=== PATIENT | male | born 1955 | race Caucasian/White ===

== ENCOUNTER 2020-10-10 07:50 | Day surgery (SDC) | payer MEDICARE, SELFPAY ==
[2020-10-04 12:05] VITALS: BMI 34.4
--- NOTE | 2020-10-09 09:41 | HO.ANESPROP2 ---
Documented by User: Vicky Hinojosa 10/09/20 09:41 HPI - Anesthesia Eval Consult details Narrative: 64yo M for Colonoscopy [facility] Past Medical History Medical History COVID-19 vaccine administered Gallstones HTN (hypertension) Surgical History Surgical History Hx of appendectomy Hx of colonoscopy Social History Social History Are you a primary health care facility administrator to a significant other at home: No Do you presently have visiting nurse or other home services: No Patient Tobacco Use Status: Never used Tobacco Use of substances other than those prescribed or required for medical reasons: No Have you been hit, kicked, punched, or otherwise hurt by someone within the past year? If so, by whom?: No Are you DNR?: No Advance Directives: No Advance Directives Information Provided: No Advance Directives on File: No Recently lost weight without trying: No Eating poorly because of decreased appetite: No Nutrition Risks: No Nutritional Risk Poor oral hygiene: No Meds Allergies Allergy/AdvReac Type Severity Reaction Status Date / Time No Known Allergies Allergy Verified 10/04/20 11:33 Home Medications Medication Instructions Recorded Confirmed Last Taken Type diltiazem HCl 1 cap PO DAILY 10/04/20 10/04/20 10/10/20 History hydrochlorothiazide 1 tab PO DAILY 10/04/20 10/04/20 Unknown History losartan 1 tab PO DAILY 10/04/20 10/04/20 Unknown History ursodiol 1 cap PO TID 10/04/20 10/04/20 Unknown History Exam Exam Date and Time: October 09, 2020 0941 Height,Weight and Vital Signs: Height 5 ft 8 in Weight 102.965 kg Assessment and Plan Assessment Anesthesia Assessment: Chart Reviewed Documented by User: Khadijah Treadwell 10/10/20 08:48 [facility] Past Medical History Medical History COVID-19 vaccine administered Gallstones HTN (hypertension) Surgical History Surgical History Hx of appendectomy Hx of colonoscopy Social History Social History Are you a primary health care facility administrator to a significant other at home: No Do you presently have visiting nurse or other home services: No Patient Tobacco Use Status: Never used Tobacco Use of substances other than those prescribed or required for medical reasons: No Have you been hit, kicked, punched, or otherwise hurt by someone within the past year? If so, by whom?: No Are you DNR?: No Advance Directives: No Advance Directives Information Provided: No Advance Directives on File: No Recently lost weight without trying: No Eating poorly because of decreased appetite: No Nutrition Risks: No Nutritional Risk Poor oral hygiene: No Meds Allergies Allergy/AdvReac Type Severity Reaction Status Date / Time No Known Allergies Allergy Verified 10/04/20 11:33 Home Medications Medication Instructions Recorded Confirmed Last Taken Type diltiazem HCl 1 cap PO DAILY 10/04/20 10/04/20 10/10/20 History hydrochlorothiazide 1 tab PO DAILY 10/04/20 10/04/20 Unknown History losartan 1 tab PO DAILY 10/04/20 10/04/20 Unknown History ursodiol 1 cap PO TID 10/04/20 10/04/20 Unknown History Exam Airway Mallampati Class: III TM Dist: >3cm Neck ROM: Full Loose/Missing/Broken Teeth: No Heart: RRR Lungs: CTA Assessment and Plan Assessment Anesthesia Assessment: Anesthesia Plan Discussed and Chart Reviewed Final Anesthetic Review NPO: Yes ASA Class: II Final Preanesthetic Review: Meds/Allgs Chart Reviewed, Consent Obtained/Reviewed and Anes Risks/Benef Reviewed Patient Risk: Low Procedure Risk: Low Anesthetic Plan Anesthetic Plan: MAC: Disposition: Standard PACU
[2020-10-10 08:02] VITALS: BP 164/62; PULSE 70; RESP 18; TEMP 35.9; O2SAT 98
[2020-10-10] MEDS: Lactated Ringers 1,000 ML 100 ML IVCONT (08:10)
--- NOTE | 2020-10-10 08:38 | MHC.SHP ---
Pre-Procedural Eval Section A Date of Service: 10/10/20 Section B Chief Complaint: screening Details of Present Illness: see h&p no changes Relevant Family History (Specify if Yes): Yes Relevant Social History: None Present Medications: see Short Stay Collaborative assessment Medical History: No relevant PMH History of Previous Operations: No relevant previous surgery Allergies: Allergies Allergy/AdvReac Type Severity Reaction Status Date / Time No Known Allergies Allergy Verified 10/04/20 11:33 Review of Systems Sugical H&P ROS: Negative: Constitution, Cardiovascular, Respiratory, Neurological, Psychiatric, Hem-Onc, Allergic/Immunologic, Gastrointestinal, Genitourinary, Musculoskeletal, Integumentary, Endocrine and Eyes/Ears/Nose/Throat Exam Surgical H&P Exam: Normal: HEENT, Normal: Heart, Normal: Lungs, Normal: Extremities, Normal: Abdomen, Normal: Skin and Normal: Neurological Plan Diagnosis/Plan: Unchanged I have reviewed the history and physical and performed a pertinent physical examination on my patient. No changes have occurred unless specified.
[2020-10-10 09:22] VITALS: BP 132/46; PULSE 62; RESP 18; TEMP 36.2; O2SAT 100
--- NOTE | 2020-10-10 09:26 | P.BOP_ITS ---
Brief Operative Note Date of Service: 10/10/20 Pre-op diagnosis: screening Post-op diagnosis: other (colon polyps) Procedure: colonoscopy Surgeon: Osito Ceja Anesthesia: MAC Was an Impregnator Operator used for this Procedure?: No Estimated blood loss (mL): 5 Pathology: other (multiple polyps) Condition: stable Disposition: PACU
[2020-10-10 09:37] VITALS: BP 124/47; PULSE 53; RESP 16; TEMP 36.2; O2SAT 97
--- NOTE | 2020-10-10 09:42 | OP_ITS ---
SURGEON: Osito Ceja MD INDICATIONS: Colon cancer screening and prior history of adenomatous colon polyps. PREOPERATIVE DIAGNOSIS: POSTOPERATIVE DIAGNOSIS: PROCEDURE PERFORMED: Colonoscopy to the terminal ileum with snare polypectomy. ESTIMATED BLOOD LOSS: COMPLICATIONS: ANESTHESIA: ASSISTANTS: SPECIMENS: MEDICATIONS: Monitored anesthesia care. DESCRIPTION OF PROCEDURE: History and physical performed. The risks and benefits of the procedure were explained to the patient. Informed consent was obtained. The patient was placed in the left lateral decubitus position. A digital rectal exam was performed and was found to be normal. The Olympus pediatric video colonoscope was introduced into the rectum and advanced to the cecum without difficulty. The cecum was identified by transillumination, palpation, and identification of ileocecal valve. Examination was performed and the scope was removed. He tolerated the procedure well and was taken to recovery area in stable condition. FINDINGS: The terminal ileum was normal. The visualized colonic mucosa was normal. There were multiple colonic polyps, all of which were removed with a snare. The largest measured approximately 10 to 12 mm. Polyps were located in the cecum x3, at 70 cm x6, at 60 cm x2, at 50 cm x1, and 40 cm x1. There was some stool coating the mucosa. This was washed and suctioned. Retroflexed examination showed some small internal hemorrhoids. IMPRESSION: Multiple colonic polyps. RECOMMENDATION: Follow up the biopsy results. MD RENARD Fleming/FRANK / [id number]
== END 2020-10-10 10:00 | disposition home or self-care (01) ==
PROVIDERS: PCP Internal Medicine; Visit Provider Internal Medicine Gastroenterology
PROC: 0DJD8ZZ Inspection of Lower Intestinal Tract, Via Natural or Artificial Opening Endoscopic (ICD-10-PCS; CPT 45378; principal; 2020-10-10 09:00)
DX: Z12.11 Encounter for screening for malignant neoplasm of colon (principal); Z86.010 Personal history of colon polyps; D12.0 Benign neoplasm of cecum; D12.4 Benign neoplasm of descending colon; D12.5 Benign neoplasm of sigmoid colon; K64.8 Other hemorrhoids; I10 Essential (primary) hypertension; Z79.899 Other long term (current) drug therapy
CPT/HCPCS: 45385; 88305

== ENCOUNTER 2022-01-29 06:16 | Day surgery (SDC) | payer MEDICARE, BC, SELFPAY ==
--- NOTE | 2022-01-28 12:30 | HO.ANESPROP2 ---
HPI - Anesthesia Eval Consult details Narrative: 66yo M for Upper Endoscopy and Colonoscopy [facility] Past Medical History Medical History COVID-19 vaccine administered Gallstones HTN (hypertension) Surgical History Surgical History (Updated 01/29/22 @ 07:17 by Aida Finch RN) History of cholecystectomy Hx of appendectomy Hx of colonoscopy Social History Social History Are you a primary lawn care technician to a significant other at home: No Do you presently have visiting nurse or other home services: No Patient Tobacco Use Status: Never used Tobacco Use of substances other than those prescribed or required for medical reasons: No Are you DNR?: No Advance Directives: No Advance Directives Information Provided: Yes Meds Allergies Allergy/AdvReac Type Severity Reaction Status Date / Time No Known Allergies Allergy Verified 10/04/20 11:33 Home Medications Medication Instructions Recorded Confirmed Last Taken Type diltiazem HCl 360 mg 1 cap PO DAILY 10/04/20 01/29/22 10/10/20 History capsule,extended release 24 hr hydrochlorothiazide 25 mg tablet 1 tab PO DAILY 10/04/20 01/29/22 Unknown History losartan 100 mg tablet 1 tab PO DAILY 10/04/20 01/29/22 Unknown History Exam Exam Date and Time: January 28, 2022 1230 Assessment and Plan Assessment Anesthesia Assessment: Chart Reviewed
[2022-01-29 07:02] VITALS: BMI 30.1
[2022-01-29 07:11] VITALS: BP 171/64; PULSE 64; RESP 16; TEMP 36; O2SAT 99
[2022-01-29] MEDS: Lactated Ringers 1,000 ML 100 ML IVCONT (07:44)
--- NOTE | 2022-01-29 07:45 | MHC.SHP ---
Pre-Procedural Eval Section A Date of Service: 01/29/22 Section B Chief Complaint: cirrhosis,screening Details of Present Illness: see H&P no changes Relevant Family History (Specify if Yes): No Relevant Social History: None Present Medications: see Short Stay Collaborative assessment Medical History: No relevant PMH Allergies: Allergies Allergy/AdvReac Type Severity Reaction Status Date / Time No Known Allergies Allergy Verified 10/04/20 11:33 Review of Systems Sugical H&P ROS: Negative: Constitution, Cardiovascular, Respiratory, Neurological, Psychiatric, Hem-Onc, Allergic/Immunologic, Gastrointestinal, Genitourinary, Musculoskeletal, Integumentary, Endocrine and Eyes/Ears/Nose/Throat Exam Surgical H&P Exam: Normal: HEENT, Normal: Heart, Normal: Lungs, Normal: Extremities, Normal: Abdomen, Normal: Skin and Normal: Neurological Plan Diagnosis/Plan: Unchanged I have reviewed the history and physical and performed a pertinent physical examination on my patient. No changes have occurred unless specified.
--- NOTE | 2022-01-29 08:03 | P.CONAN_ITS ---
HPI - Anesthesia Eval Consult details Narrative: 66yo male patient for EGD, Colonoscopy PMFSH Active Problems Active Problems: Denies FILOMENA Past Medical History Medical History COVID-19 vaccine administered Gallstones HTN (hypertension) Family History Family history of problems with anesthesia: No Surgical History Surgical History (Updated 01/29/22 @ 07:17 by Aida Finch RN) History of cholecystectomy Hx of appendectomy Hx of colonoscopy History of Problems with Anesthesia: No Social History Social History Are you a primary career development engineer to a significant other at home: No Do you presently have visiting nurse or other home services: No Patient Tobacco Use Status: Never used Tobacco Use of substances other than those prescribed or required for medical reasons: No Are you DNR?: No Advance Directives: No Advance Directives Information Provided: Yes Meds Allergies Allergy/AdvReac Type Severity Reaction Status Date / Time No Known Allergies Allergy Verified 10/04/20 11:33 Active Medications: Current Medications Lactated Ringer's (Lr) 1,000 mls @ 100 mls/hr IVCONT .Q10H SIERRA Last Admin: 01/29/22 07:44 Dose: 100 mls/hr Home Medications Medication Instructions Recorded Confirmed Last Taken Type diltiazem HCl 360 mg 1 cap PO DAILY 10/04/20 01/29/22 10/10/20 History capsule,extended release 24 hr hydrochlorothiazide 25 mg tablet 1 tab PO DAILY 10/04/20 01/29/22 Unknown History losartan 100 mg tablet 1 tab PO DAILY 10/04/20 01/29/22 Unknown History Exam Exam Date and Time: January 29, 2022802 Height,Weight and Vital Signs: Height 5 ft 8 in Weight 89.811 kg Last Vital Signs Temp 96.8 F 01/29/22 07:11 Pulse 64 01/29/22 07:11 Resp 16 01/29/22 07:11 BP 171/64 H 01/29/22 07:11 Pulse Ox 99 01/29/22 07:11 O2 Del Method 01/29/22 07:11 Airway Mallampati Class: IV TM Dist: >3cm Neck ROM: Full Loose/Missing/Broken Teeth: No (Denies broken or loose teeth) Heart: RRR Lungs: CTAB Assessment and Plan Assessment Anesthesia Assessment: Anesthesia Plan Discussed and Chart Reviewed Final Anesthetic Review Family History of Problems with Anesthesia: No History of Problems with Anesthesia: No NPO: Yes ASA Class: III Final Preanesthetic Review: No Changes in Pt Med Stat, Meds/Allgs Chart Reviewed, Consent Obtained/Reviewed and Anes Risks/Benef Reviewed Patient Risk: Intermediate Procedure Risk: Low Assessment/Block/Sedation in SS: Assess/Block/Sedation-SS Anesthetic Plan Anesthetic Plan: MAC: Disposition: Standard PACU
[2022-01-29 08:29] VITALS: BP 100/33; PULSE 67; RESP 15; TEMP 36.1; O2SAT 98
--- NOTE | 2022-01-29 08:35 | P.BOP_ITS ---
Brief Operative Note Date of Service: 01/29/22 Pre-op diagnosis: cirrhosis, screening Post-op diagnosis: same Procedure: egd colonoscopy Surgeon: Osito Ceja Anesthesia: MAC Was an Family Reunification Specialist used for this Procedure?: No Estimated blood loss (mL): 2 Pathology: other Condition: stable Disposition: PACU
[2022-01-29 08:43] VITALS: BP 137/49; PULSE 60; RESP 16; TEMP 36.2; O2SAT 97
--- NOTE | 2022-01-30 00:43 | OP_ITS ---
SURGEON: Osito Ceja MD INDICATIONS: 1. Cirrhosis. 2. Colon cancer screening. PREOPERATIVE DIAGNOSIS: POSTOPERATIVE DIAGNOSIS: PROCEDURE PERFORMED: Upper endoscopy with biopsy, colonoscopy to the terminal ileum with snare polypectomy. ESTIMATED BLOOD LOSS: COMPLICATIONS: ANESTHESIA: Monitored anesthesia care. ASSISTANTS: SPECIMENS: DESCRIPTION OF PROCEDURE: History and physical performed. The risks and benefits of the procedure were explained to the patient. Informed consent was obtained. The patient was placed in the left lateral decubitus position. A digital rectal exam was performed prior to the colonoscopy and was found to be normal. The procedure was performed on 01/29/2022. First, the Olympus video gastroscope was introduced into the esophagus, stomach, and duodenum. Examination was performed, and the scope was removed. He was repositioned for colonoscopy. The Olympus pediatric video colonoscope was introduced into the rectum and advanced to the cecum without difficulty. The cecum was identified by transillumination, palpation, and identification of ileocecal valve examination was performed. The scope was removed. He tolerated both procedures well and was taken to recovery area in stable condition. FINDINGS: Upper endoscopy: 1. Esophagus: The esophagus was normal. There were no varices. The EG junction was irregular with a 1 cm area suspicious for possible Miranda esophagus. Biopsies were obtained from this area. There were no raised lesions or ulcerated areas. 2. Stomach: The stomach showed no evidence of masses, ulcers, or polyps. There was no portal hypertensive gastropathy. Biopsies were obtained from the antrum to rule out H pylori. 3. Duodenum: The bulb and second portion were normal. Colonoscopy: The terminal ileum was examined and appeared normal. The visualized colonic mucosa was within normal limits. A single polyp was identified measuring less than 10 mm and removed with a cold snare. This was located at 70 cm from the anal verge. No other polyps were identified. The quality of the prep was good. Retroflexed examination showed small internal hemorrhoids. IMPRESSION: 1. Cirrhosis. 2. R/O Miranda esophagus. 3. Colon polyp. RECOMMENDATION: Follow up the biopsy results. MD RENARD Fleming/FRANK / [id number] MTDD
== END 2022-01-29 08:59 | disposition home or self-care (01) ==
PROVIDERS: PCP Internal Medicine; Visit Provider Internal Medicine Gastroenterology
PROC: (CPT 45385; principal; 2022-01-29 07:30)
DX: Z12.11 Encounter for screening for malignant neoplasm of colon (principal); Z86.010 Personal history of colon polyps; D12.4 Benign neoplasm of descending colon; K64.8 Other hemorrhoids; K57.30 Diverticulosis of large intestine without perforation or abscess without bleeding; K74.60 Unspecified cirrhosis of liver; K80.80 Other cholelithiasis without obstruction; I10 Essential (primary) hypertension; Z79.899 Other long term (current) drug therapy; Z90.49 Acquired absence of other specified parts of digestive tract
CPT/HCPCS: 45385; 43239; 88305; 88342; J3010

== ENCOUNTER 2022-02-05 09:15 | Outpatient (REF) | payer MEDICARE, BC, SELFPAY | END 2022-02-05 09:16 | disposition home or self-care (01) | LOC: HO.LAB 09:15 | PROVIDERS: PCP Internal Medicine; Visit Provider Internal Medicine Gastroenterology | DX: Z13.89 Encounter for screening for other disorder (principal) ==

== ENCOUNTER 2022-02-06 07:35 | Outpatient (REF) | payer MEDICARE, BC, SELFPAY | END 2022-02-06 07:36 | disposition home or self-care (01) | LOC: HO.LNP 07:35 | PROVIDERS: Visit Provider Internal Medicine Gastroenterology | DX: R93.3 Abnormal findings on diagnostic imaging of other parts of digestive tract (principal) | CPT/HCPCS: 87338 ==